=== PATIENT | female | born 1980 | race Caucasian/White ===

== ENCOUNTER 2017-11-21 02:27 | Inpatient (IN) | payer MEDICAID, OTHER, SELFPAY ==
--- OUTSIDE RECORDS SUMMARY | 2017-11-21 02:29 | XMS REPORT ---
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
--- OUTSIDE RECORDS SUMMARY | 2017-11-21 02:29 | XMS REPORT ---
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
[2017-11-21] MEDS ORDERED: Ringers Lactate 1,000 ML IV PRN (03:07)
[2017-11-21 03:53] LABS: RPR Titer ND
[2017-11-21] MEDS ORDERED: Ringers Lactate 1,000 ML IV SCH (04:00)
[2017-11-21 04:03] LABS: Urine Appearance CLEAR; Urine Bilirubin NEGATIVE (NEG); Urine Blood 3+ (NEG); Urine Color YELLOW; Urine Glucose NEGATIVE (NEG); Urine Protein NEGATIVE (NEG); Urine Specific Gravity 1.015 (1.005-1.030); Urine Urobilinogen 0.2 mg/dL (0.2-1.0)
[2017-11-21] MEDS ORDERED: BUTORPHANOL 1 MG/ML INJ IV PRN (04:04)
[2017-11-21 04:13] LABS: Bicarbonate 21 mEq/L (21-31); Glucose Level 85 mg/dL (65-120); Potassium 3.8 mEq/L (3.6-5.0); Sodium Level 134 mEq/L (135-145)
[2017-11-21 04:14] LABS: BUN Blood Urea Nitrogen 15 mg/dL (6-20)
[2017-11-21] MEDS ORDERED: ROPIVACAINE HCL 100 ML IV PRN (04:18)
[2017-11-21] MEDS ORDERED: FENTANYL CITR 100 MCG/2 ML IV ONE (04:18)
[2017-11-21] MEDS ORDERED: ROPIVACAINE HCL 2 MG/ML 100ML IV ONE (04:19)
[2017-11-21 04:23] LABS: Absolute Lymphocytes (CBC) 2.3 K/uL (0.7-4.9); Absolute Monocytes 0.7 K/uL (0.1-1.3); Absolute Neutrophil 7.6 K/uL (1.8-8.0); Basophils % 0.3 % (0-1.3); Eosinophils % 1.2 % (0-4.4); Hematocrit 35.4 % (36.0-45.0); Lymphocytes % 21.1 % (15.3-44.8); MCH 30.3 pg (27.0-35.0); MCV 87.4 fL (80-100); MPV 7.2 fL (7.6-11.3); Monocytes % 6.8 % (3.3-12.3); RBC Red Blood Cell Count 4.04 M/uL (3.86-4.86)
[2017-11-21 04:35] VITALS: BMI 24.6
[2017-11-21] MEDS ORDERED: ROPIVACAINE HCL 0 ML ONE (04:35)
[2017-11-21] MEDS ORDERED: OXYTOCIN/LR 20 UNIT/1,000 ML BAG IV ONE (04:35)
[2017-11-21 04:44] LABS: Urine Microscopic Reflex ORDER UMIC
[2017-11-21] MEDS ORDERED: OXYTOCIN/LR 20 UNIT/1,000 ML BAG IV SCH (05:00)
[2017-11-21 05:42] LABS: Urine Bacteria <20 /HPF (<20); Urine Culture Reflex Order REFLEXED; Urine RBC <5 /HPF (NONE SEEN)
[2017-11-21] MEDS ORDERED: CARBOPROST TROME 250 MCG/ML IM ONE (06:54)
[2017-11-21] MEDS ORDERED: METHYLERGONOVINE 0.2MG/ML AMP IM ONE (06:54)
--- NOTE | 2017-11-21 07:32 | P.HP ---
Certification for Inpatient Patient admitted to: Inpatient With expected LOS: >2 Midnights Patient will require the following post-hospital care: None Practitioner: I am a practitioner with admitting privileges, knowledge of patient current condition, hospital course, and medical plan of care. Services: Services provided to patient in accordance with Admission requirements found in Title 42 Section 412.3 of the Code of Federal Regulations Patient History Date of Service: 11/21/17 Reason for admission: Spontaneous labor History of Present Illness: 37 y.o. at 40w3d admitted for spontaneous onset of labor. She started having painful contractions starting at midnight which, progressed so she presented to L&D. She denied leaking fluid or bleeding on admission. movement present. She started care at 13 weeks. Quad screen showed elevated MSAFP and she was sent to [facility] for further eval. 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 also c/b AMA and mild anemia prescribed iron supplementation. DESTIN: 11/18/2017. GBS negative. Allergies No Known Allergies Allergy (Verified 11/21/17 04:25) Home Medications: Pnv Cmb#95/Ferrous Fumarate/FA [ Tablet] 1 tab PO DAILY 11/21/17 - Past Medical/Surgical History Has patient received pneumonia vaccine in the past: No Diabetic: No Past Medical History: Patient denies medical history Past Surgical History: Patient denies surgical history - Family History Mother -: Cancer - Social History Smoking Status: Never smoker Alcohol use: No CD- Drugs: No Caffeine use: Yes Place of Residence: Home Review of Systems 10-point ROS is otherwise unremarkable Physical Examination - Vital Signs Temperature: 97.5 F Blood Pressure: 105/76 Pulse: 69 Respirations: 18 - Physical Exam General: Alert, In no apparent distress, Oriented x3 HEENT: Atraumatic, Normocephalic Respiratory: Other (Normal effort) Cardiovascular: Normal pulses Musculoskeletal: No swelling Integumentary: No rashes, No breakdown Neurological: Normal speech - Studies Laboratory Data (last 24 hrs) 11/21/17 03:28: Sodium 134 L, Potassium 3.8, BUN 15, Creatinine 0.64, Glucose 85 11/21/17 03:28: WBC 10.7, Hgb 12.3, Hct 35.4 L, Plt Count 265 Female Exam - Female Pelvic Cervix: Dilation (\Complete), Effacement (100%), station (+1) Uterus: Non-tender, Soft, Gravid - Obstetrics heart rate tracing: Category 1 Contractions: Frequency (q2-3 min) Amniotic membrane: SROM (Clear fluid noted) Assessment and Plan - Problems (Diagnosis) (1) Spontaneous onset of labor Current Visit: Yes Status: Acute Plan: Admitted for expectant management. Epidural placed for pain control. Continuous monitoring. (2) SROM (spontaneous rupture of membranes) Current Visit: Yes Status: Acute Plan: Clear fluid noted. GBS negative status. (3) AMA (advanced maternal age) multigravida 35+ Current Visit: Yes Status: Acute Plan: Pt had Quad screen done with abnormal result. Referred to [facility]. Qualifiers: Trimester: third trimester Qualified Code(s): O09.523 - Supervision of elderly multigravida, third trimester (4) Abnormal MSAFP (maternal serum alpha-fetoprotein), elevated Current Visit: Yes Status: Acute Plan: F/u with MFM did not reveal other abnormalities or anomaly. She was followed by growth U/S until just over 32 weeks, when she declined to continue [facility] care due to social factors. Final U/S done by radiology department at 35 weeks showed slightly accelerated growth without other concerning findings. Negative NIPT testing results in chart. (5) Accelerated growth of fetus Current Visit: Yes Status: Acute Plan: Suspected > 8 lb fetus. Plan for possible dystocia. Stool present in the room as well as possible need to uterotonics given risk of atony. (6) Anemia Current Visit: Yes Status: Acute Plan: Iron supplementation prescribed with improved H/H indices noted on admission. Qualifiers: Anemia type: iron deficiency Iron deficiency anemia type: inadequate dietary iron intake Qualified Code(s): D50.8 - Other iron deficiency anemias (7) Nssyi-4-fddbqlwcjfn deficiency carrier Current Visit: Yes Status: Acute Plan: Identified following MFM referral due to elevated MSAFP. Definition and associated risks reviewed with patient by M, genetics counselor. No results noted regarding FOB testing. - Advance Directives Does patient have a Living Will: No Does patient have a Durable POA for Healthcare: No
--- NOTE | 2017-11-21 08:09 | RAD REPORT ---
EXAM DESCRIPTION: US - OB Limited - 11/21/2017 4:05 am CLINICAL HISTORY: /assess presentation FINDINGS: A limited ultrasound was performed to assess presentation. The presentation is cephalic. Cardiac activity 170 beats per minute IMPRESSION: Cephalic presentation
[2017-11-21] MEDS ORDERED: CODEINE 30MG/APAP 300MG TAB PO PRN (09:26)
[2017-11-21] MEDS ORDERED: METOCLOPRAMIDE 5 MG TAB PO PRN (09:26)
[2017-11-21] MEDS ORDERED: ACETAMINOPHEN 500 MG TAB PO PRN (09:26)
[2017-11-21] MEDS ORDERED: BISACODYL 10 MG RECTAL SUPP RECT PRN (09:26)
[2017-11-21] MEDS ORDERED: IBUPROFEN 200 MG TAB PO PRN (09:26)
[2017-11-21] MEDS ORDERED: DOCUSATE NA/SENNA CONC 1 TAB PO PRN (09:26)
[2017-11-21] MEDS ORDERED: ONDANSETRON 4 MG (ODT) TAB PO PRN (09:26)
--- NOTE | 2017-11-21 15:52 | P.OP ---
Preoperative diagnosis: Spontaneous onset of labor Postoperative diagnosis: Same Primary procedure: Anesthesia: Epidural Estimated blood loss: 300 cc Specimen: None Findings: See operative report Operative Technique: FINDINGS: Male fetus in OA position, APGARS of 9/9 at 1 and 5 minutes respectively, weight of 8 lb 0 oz, clear amniotic fluid. Normal appearing placenta. Second degree midline laceration. Stage I: 7 h 11 min; Stage II: 1h 29 min. HISTORY OF PRESENT ILLNESS: The patient is a 37-year-old female who is a at 40w3d who was admitted for spontaneous onset of labor. She had adequate care and was complicated by elevated MSAFP and alpha -1-odbf-qbvuivt deficiency carrier. AB+ blood type, labs were normal and she had otherwise routine care. On admission, she was noted to be 3-4 cm dilated. She denied complaints and noted positive movement. PROCEDURE DETAILS: The patient was admitted to Labor and Delivery for expectant management. She requested an epidural for pain control, which was placed with good result. She had SROM, with clear fluid noted. Labor progressed normally. She had a spontaneous vaginal delivery of a live born male with clear fluid from an OA position over an intact perineum at 08:41. After controlled delivery of the head, the shoulders and body followed without difficulty. Bulb suctioning was done. The was placed on the patient's abdomen for skin to skin contact. The cord was clamped and cut. Findings as stated above. There was no depression. was crying, vigorous, and moving all extremities. Spontaneous delivery of an intact placenta with a three-vessel cord was noted at 08:47. On examination, there was 2nd degree midline laceration. It was repaired in the usual fashion using 2-0 vicryl. On vaginal exam, there were no noted cervical or vaginal sidewall lacerations. Patient tolerated procedure well and there were no complications. Estimated blood loss was ~300 cc. Mother and infant are in recovery doing well at this time. Complications: None Fluids & blood products: mIVF Transferred to: Recovery Room Condition: Good
[2017-11-21 23:06] LABS: RPR (Rapid Plasma Reagin) NON-REACT (NON-REACT)
[2017-11-22 08:09] VITALS: BP 120/74
--- NOTE | 2017-11-22 08:18 | P.DS ---
Admission Date: 11/21/17 Discharge Date: 11/22/17 Disposition: ROUTINE DISCHARGE Comment: Rounding with discharge summary Discharge Condition: GOOD Reason for Admission: Spontaneous labor - Problems (1) Spontaneous onset of labor Onset Date: 11/22/17 Status: Acute (2) SROM (spontaneous rupture of membranes) Onset Date: 11/22/17 Status: Resolved (3) AMA (advanced maternal age) multigravida 35+ Onset Date: 11/22/17 Status: Chronic Qualifiers: Trimester: third trimester Qualified Code(s): O09.523 - Supervision of elderly multigravida, third trimester (4) Abnormal MSAFP (maternal serum alpha-fetoprotein), elevated Onset Date: 11/22/17 Status: Chronic (5) Accelerated growth of fetus Onset Date: 11/22/17 Status: Resolved (6) Anemia Onset Date: 11/22/17 Status: Resolved Qualifiers: Anemia type: iron deficiency Iron deficiency anemia type: inadequate dietary iron intake Qualified Code(s): D50.8 - Other iron deficiency anemias (7) Waqge-7-wzdkhmfkxex deficiency carrier Onset Date: 11/22/17 Status: Chronic Brief History of Present Illness: 37 y.o. at 40w3d admitted for spontaneous onset of labor. She started having painful contractions starting at midnight which, progressed so she presented to L&D. She denied leaking fluid or bleeding on admission. movement present. She started care at 13 weeks. Quad screen showed elevated MSAFP and she was sent to [facility] for further eval. 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 also c/b AMA and mild anemia prescribed iron supplementation. DESTIN: 11/18/2017. GBS negative. Hospital Course: Pt was admitted for labor management, which was done spontaneously. She had an epidural for pain control and labor progressed normally. She had a normal vaginal delivery. course was uncomplicated and she was stable for d/ c home on PPD #1. Vital Signs/Physical Exam: Temp Pulse Resp BP Pulse Ox 95.5 F L 69 18 120/74 11/22/17 08:08 11/22/17 08:08 11/22/17 08:08 11/22/17 08:08 General: Alert, In no apparent distress, Oriented x3 Respiratory: Other (Normal effort) Cardiovascular: No edema, Normal pulses Gastrointestinal: Soft and benign, No tenderness, Other (Uterus firm and at the level of umbilicus) Musculoskeletal: No swelling, No erythema, No tenderness Integumentary: No rashes, No breakdown Neurological: Normal speech, Normal strength at 5/5 x4 extr Laboratory Data at Discharge: WBC 10.7 K/uL (4.3-10.9) 11/21/17 03:28 Hgb 12.3 g/dL (12.0-15.0) 11/21/17 03:28 Hct 35.4 % (36.0-45.0) L 11/21/17 03:28 Plt Count 265 K/uL (152-406) 11/21/17 03:28 Sodium 134 mEq/L (135-145) L 11/21/17 03:28 Potassium 3.8 mEq/L (3.6-5.0) 11/21/17 03:28 BUN 15 mg/dL (6-20) 11/21/17 03:28 Creatinine 0.64 mg/dL (0.44-1.00) 11/21/17 03:28 Glucose 85 mg/dL (65-120) 11/21/17 03:28 Home Medications: Pnv Cmb#95/Ferrous Fumarate/FA [ Tablet] 1 tab PO DAILY 11/21/17 Codeine/APAP [Tylenol #3*] 1 tab PO Q4H PRN #10 tab 11/22/17 Ibuprofen 800 mg PO Q8H PRN #30 tablet 11/22/17 New Medications: Codeine/APAP [Tylenol #3*] 1 tab PO Q4H PRN #10 tab PRN Reason: Pain Scale 8-10 (Severe) Ibuprofen 800 mg PO Q8H PRN #30 tablet PRN Reason: Abdominal Cramps Patient Discharge Instructions: Complete pelvic rest for 6 weeks after . Notify doctor of heavy bleeding, fever/chills, or uncontrolled pain. See physician in 6 weeks for exam. Diet: Regular Activity: Ad nika Followup: Ana Maria Garcia MD [ACTIVE - CAN ADMIT] - (Follow up care with Dr. Garcia in 4-6 weeks.)
[2017-11-22 09:55] VITALS: TEMP 97.2
[2017-11-23 18:21] LABS: HBsAG Nonreactive (Nonreactive)
== END 2017-11-22 12:10 | disposition home or self-care (01) | DRG 775 ==
LOC: L&D 02:27 → 2ND-WC 03:09
PROVIDERS: ADMIT Obstetrics & Gynecology; ATTEND Obstetrics & Gynecology
PROC: 0KQM0ZZ Repair Perineum Muscle, Open Approach (ICD-10-PCS; principal; 2017-11-21)
PROC: 10E0XZZ Delivery of Products of Conception, External Approach (ICD-10-PCS; 2017-11-21)
DX: O70.1 Second degree perineal laceration during delivery (principal); Z37.0 Single live birth; O99.02 Anemia complicating childbirth; Z3A.40 40 weeks gestation of pregnancy; Z14.8 Genetic carrier of other disease; Z28.21 Immunization not carried out because of patient refusal
CPT/HCPCS: 36415; 76815; 80048; 81003; 81015; 85025; 86592; 86850; 86900; 86901; 87086; 87088; 87340; J2210; J2590; J2795; J3010